=== PATIENT | male | born 2000 | race Hispanic/Latino ===

== ENCOUNTER 2020-09-01 19:42 | Emergency (ER) | payer OTHER ==
[~2020-09-01] VITALS: Ht 165.1 cm; Wt 97.5 kg
[2020-09-01] MEDS ORDERED: BUPIVACAINE HCL 0.5% INJ 30 ML VIAL INJ ONE (20:15)
[2020-09-01] MEDS ORDERED: AUGMENTIN 875-1 EACH PO (21:42)
[2020-09-01 21:57] VITALS: BP 132/79
== END 2020-09-01 21:59 | disposition home or self-care (01) ==
LOC: ER 20:06
DX: L05.01 Pilonidal cyst with abscess (principal); G47.30 Sleep apnea, unspecified
CPT/HCPCS: 99282